=== PATIENT | female | born 1965 | race Caucasian/White ===

== ENCOUNTER 2025-01-14 12:55 | Outpatient (AMB) | payer OTHER, SELFPAY ==
--- NOTE | 2025-01-14 12:58 | A.PHYSOV_ITS ---
Vital Signs 01/14/25 13:07 Height 5 ft 3 in Weight 140 lb BMI 24.8 Intake Visit Reasons: NPV Self ref- rt hand index finger Intake Note: Patient is a 59 year old female here for new patient visit. Patient presents with pain in right index finger. 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 The patient has experienced constant, 24/7 pain in the left index finger for approximately seven years, which is severe enough to cause crying. The pain is localized to the corner of the nail and is described as a burning, electric-like sensation. The onset occurred after an incident at a [employer] where the patient felt something sharp, though no bite or visible injury was seen. The pain is exacerbated by cold. When the pain is severe, the patient reports that the affected finger and the adjacent finger become completely numb. An MRI performed about five years ago reportedly showed no abnormalities. The patient has previously seen other physicians, including one who suggested it could be neuropathy and another who stated nothing further could be done. A prior trial of gabapentin did not resolve the pain. Pain Description - Onset and Timing: The pain began approximately 7 years ago and has been constant (24/7) since. - Quality and Character: The pain is described as a significant burning sensation, sometimes feeling like electricity. - Primary Location: The pain is located specifically in the corner of the left index finger, over the nail and cuticle area, not in the joint. - Associated Symptoms: When the pain is very severe, the index and an adjacent finger become completely numb. - Exacerbating Factors: The pain is triggered and worsened by cold. - Interference with Function: The pain is severe enough to cause the patient to cry. Results - Imaging: - MRI of the hand, performed approximately five years ago, reportedly showed no abnormalities. PFS Surgical History (Updated 01/14/25 @ 13:04 by Chloe Lou MA) H/O: hysterectomy Previous section Social History (Updated 01/14/25 @ 13:05 by Chloe Lou MA) Alcohol intake: current Alcohol intake frequency: does not drink Patient Tobacco Use Status: Never used Tobacco Use of substances other than those prescribed or required for medical reasons: Yes Substance Use Type: Marijuana Review of Systems Narrative Review of Systems - Neurological: Reports chronic, constant, burning pain in the left index finger for 7 years. - Reports intermittent numbness in the left index and an adjacent finger with severe pain. - Denies numbness at night. - Dermatological/Integumentary: Reports pain localized to the cuticle. - Reports observing that the nail is changing shape. - Musculoskeletal: Reports full range of motion in the affected finger. Physical Exam Exam Exam: Physical Exam - Left Upper Extremity: - Inspection: A small subcutaneous nodule, consistent with a ganglion, is noted on the hand, but not on the left index finger. - The patient notes the nail of the left index finger appears distorted. - Palpation: There is point tenderness over the cuticle margin of the left index finger. - There is no tenderness over the joint itself. - Range of Motion: The left index finger has full active flexion and extension. - Neurological: Tinel's sign at the wrist is negative. Vital Signs: BMI result Body Mass Index 24.8 Assessment & Plan Assessment & Plan (1) Hand pain, left: Code(s): M79.642 - Pain in left hand Category: Medical (2) Strain of intrinsic muscle of index finger: Code(s): S66.518A - Strain of intrinsic muscle, fascia and tendon of other finger at wrist and hand level, initial encounter Category: Medical Plan Pain Management - Analgesia: The patient has constant, 24/7 pain. - A previous trial of gabapentin was not successful in alleviating the pain. - Affect: The patient reports the pain is annoying and sometimes causes the patient to cry. - Aberrant Drug Related Behaviors: No aberrant behaviors were discussed or reported. Plan Patient was informed and verbally consented to the use of an ambient scribe for clinic note documentation during this visit. 1. 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 The clinical picture is not consistent with carpal tunnel syndrome or arthritis. Given the chronicity and negative MRI from five years ago, the etiology remains unclear. A new MRI of the left index finger will be ordered to re-evaluate for any underlying pathology. To manage the neuropathic pain symptoms, a trial of Lyrica will be initiated at a low dose, taken three times daily. The limited and temporary benefit of a nerve block was discussed. Discussion Notes I discussed with the patient that the cause of the chronic left index finger pain is unclear, especially given the negative MRI from five years ago. I explained that the symptoms do not align with common conditions like carpal tunnel syndrome or arthritis, and that a nerve block would likely offer only very temporary relief of a few hours. I recommended a trial medication, Lyrica, to help manage the neuropathic symptoms, starting at a low dose to be taken three times a day. I advised the patient to avoid taking anti-inflammatory medications while on Lyrica due to potential effects on the kidneys. In response to the patient's request, I agreed to order a new MRI of the left index finger to re-evaluate for any abnormalities. We will have the patient try the medication for one month, with follow-up to assess for benefit and potential dose adjustment. Patient Instructions - I will send a prescription for Lyrica to your pharmacy. - Start by taking the lowest dose three times per day. - Do not take anti-inflammatory medicines like ibuprofen or naproxen while taking Lyrica, because it can be hard on your kidneys. - I will order a new MRI of your left index finger to get a better look at it. - Try the Lyrica for one month. - If you find that it is helpful, I can continue to prescribe it for you. Orders: Orders MR morataya LT wo con Today M79.642 - Pain in left hand, S66.518A - Strain of intrinsic muscle, fascia and tendon of other finger at wrist and hand level, initial encounter Medications: New pregabalin (Lyrica) 50 mg PO TID 90 caps 0RF 30 days M79.642 - Pain in left hand, S66.518A - Strain of intrinsic muscle, fascia and tendon of other finger at wrist and hand level, initial encounter Coding Level of Care Code Tele New Pt Level 4 (31095) Diagnoses Hand pain, left M79.642 Strain of intrinsic muscle of index finger S66.518A
[2025-01-14 13:07] VITALS: BMI 24.8
--- OUTSIDE RECORDS SUMMARY | 2025-01-14 14:47 | XMS_ITS | Clinical Summary ---
Author Organization [employer] [facility] ity Address [address] [place] [address] Care Team Providers Care Seaman Officer Name Role Phone Tony Neumann MD Primary Care Provider [phone] Social History Tobacco Use Types Packs/Day Years Used Date Smoking Tobacco: Never Assessed Comments Unknown Sex and Gender Information Value Date Recorded Sex Assigned at Not on file Legal Sex Female 7:05 AM EST Gender Identity Not on file Sexual Orientation Not on file Plan of Treatment Health Maintenance Due Date Last Done Comments Breast Cancer Screening 1965 Colorectal Cancer Screening: Colonoscopy 1965 Diabetes: Annual Foot Exam 09/08/1973 Diabetes: Annual Retina Eye Exam 09/08/1973 Cervical Cancer Screening: Pap Smear 09/08/1984 Diabetes: Annual GFR (Glomerular Filtration Rate) 02/22/2022 02/22/2021 Hepatitis C Screening 09/05/2023 Social Influencers of Health Screening 09/05/2023 Depression Screening 02/14/2024 COVID-19 Vaccine ( season) 2024 06/17/2020, 05/20/2020 Diabetes: Annual Urine Albumin-Creatinine Ratio (uACR) 01/14/2025 04/03/2020, 02/15/2019, 05/08/2018 Diabetes: Blood Sugar Control Test (HGBA1C) 01/14/2025 02/22/2021 Hypertension/CHF/CAD Annual BMP Blood Test 01/14/2025 02/22/2021 Cholesterol Screening (Lipid Panel) 04/03/2025 04/03/2020, 04/03/2020, 11/27/2019, Additional history exists DTaP,Tdap,and Td Vaccines (3 - Td or Tdap) 02/23/2027 02/23/2017, 08/20/1999 RSV Immunization Adult Patients (1 - 1-dose 75+ series) 09/08/2038 MMR Vaccines Aged Out 08/20/1999 No longer eligi ble based on patient's age to complete this topic Hepatitis B Vaccines Completed 01/22/2004, 10/24/2003, 09/22/2003, Additional history exists HIV Screening Completed 11/27/2019 Zoster Vaccines Completed 01/06/2020, 11/27/2019 Influenza Vaccine Completed 12/17/2024, , 11/27/2019 Pneumococcal Vaccine: 50+ Years Completed 12/17/2024, 11/27/2019, 02/23/2017 HIB Vaccines Aged Out No longer eligi ble based on patient's age to complete this topic HPV Vaccines Aged Out No longer eligi ble based on patient's age to complete this topic Hepatitis A Vaccines Aged Out No long er eligible based on patient's age to complete this topic IPV Vaccines Aged Out No longer eligi ble based on patient's age to complete this topic Meningococcal ACWY Vaccine Aged Out N o longer eligible based on patient's age to complete this topic Meningococcal B Vaccine Aged Out No l onger eligible based on patient's age to complete this topic RSV Immunization Patients Under 20 months Aged Out No longer eligible based on patient's age to complete this topic Varicella Vaccines Aged Out No longer eligible based on patient's age to complete this topic Care Teams Seaman Officer Relationship Specialty Start Date End Date Tony Neumann MD [address] [place] [id number] PCP - General 02/25/10
== END 2025-01-14 13:21 | disposition home or self-care (01) ==
LOC: HO.HPHYS 12:55
PROVIDERS: Visit Provider Physician Assistant
DX: M79.642 Pain in left hand (principal); S66.51 Strain of intrinsic muscle, fascia and tendon of other and unspecified finger at wrist and hand level
CPT/HCPCS: 99204